=== PATIENT | male | born 1940 ===

== ENCOUNTER 2020-01-11 08:53 | Day surgery (SDC) | payer OTHER ==
[~2020-01-11 08:53] MED LIST: LOSARTAN-HCTZ1 EAC1 PO; SYNTHROID50 MCG PO; ZOCOR20 MG PO
== END 2020-01-11 16:50 | disposition home or self-care (01) ==
LOC: CIR.AMB 08:53 → ADM 11:00 → CIR.AMB 11:00
DX: K64.8 Other hemorrhoids (principal); K64.4 Residual hemorrhoidal skin tags